=== PATIENT | male | born 1990 ===

== ENCOUNTER 2023-03-03 17:01 | Emergency (ER) | payer SELFPAY ==
[2023-03-03 17:26] VITALS: BP 153/97; PULSE 110; RESP 20; TEMP 36.5; O2SAT 95; BMI 38.4
--- NOTE | 2023-03-03 17:31 | ED.ANIMALBIT ---
HPI - Animal Bite General Chief Complaint: Animal Bite Stated Complaint: neighbors dog bit him Related Data Allergies Allergy/AdvReac Type Severity Reaction Status Date / Time No Known Allergies Allergy Verified 03/03/23 17:29 [facility] Social History Social History Advance Directives: No Advance Directives Information Provided: No Physical Exam ED Vital Signs: Vital Signs - 24 hr 03/03/23 17:26 Temperature 97.7 F Pulse Rate 110 H Respiratory Rate 20 Blood Pressure 153/97 H Pulse Oximetry 95 Oxygen Delivery Method Room Air BMI result Body Mass Index 38.4 Course Course Course Narrative: RME: 32 yo M w/ no sig PMHx presenting to the ED c/o dog bite to left lower leg S/P being bit by a neighbor's dog. Dog's vaccination status is unknown. Patient is up-to-date on his vaccinations Small laceration/puncture wound noted to left lower leg Will need to be irrigated, rabies immune globulin and vaccine ordered Full HPI, ROS and PE to be performed by primary ED provider. Discharge Plan Discharge Clinical Impression: Bite by animal Patient Disposition: Left W/O Completing Treatment Discharge Date/Time: 03/03/23 21:29
== END 2023-03-03 21:29 | disposition left against medical advice (07) ==
PROVIDERS: Emergency Provider Emergency Medicine
DX: S81.852A Open bite, left lower leg, initial encounter (principal); W54.0XXA Bitten by dog, initial encounter; Y93.9 Activity, unspecified; Y92.9 Unspecified place or not applicable; Y99.9 Unspecified external cause status
CPT/HCPCS: 99281